=== PATIENT | female | born 1960 | race Caucasian/White ===

== ENCOUNTER → 2016-11-27 | Outpatient (CLI) | payer BC ==
[2013-08-02 11:13] VITALS: BP 140/93
--- NOTE | 2016-11-27 13:44 | RAD ---
HISTORY: Lumbar radiculopathy Study: Lumbar spine AP, lateral, spot, obliques Comparison: None Findings: The bones are mildly osteopenic. The alignment is normal. The vertebral bodies are of average height. The disc spaces are preserved with the exception of narrowing at L5-S1. No spondylolysis or spondylo listhesis is identified. The pedicles are intact. The SI joints are normal. IMPRESSION: Mild osteopenia Mild disc space narrowing L5 on S1 Reported By:
== END | disposition home or self-care (01) | DRG 552 ==
LOC: RAD 12:40
PROVIDERS: ATTEND Nurse Practitioner Family
DX: M54.17 Radiculopathy, lumbosacral region (principal); M85.88 Other specified disorders of bone density and structure, other site; M48.07 Spinal stenosis, lumbosacral region
CPT/HCPCS: 72110

== ENCOUNTER → 2017-01-10 | Outpatient (CLI) | payer BC ==
[2013-08-02 11:13] VITALS: BP 140/93
--- NOTE | 2017-01-12 07:12 | RAD ---
HISTORY: Right lower extremity pain and edema Study: Four-views right tib-fib Comparison: None Findings: No acute cortical disruption or dislocation can be identified. No significant soft tissue swelling o r injury can be seen. IMPRESSION: 1. Negative exam. Reported By:
== END ==
LOC: RAD 09:19
PROVIDERS: ATTEND Nurse Practitioner Family
DX: M79.604 Pain in right leg (principal)
CPT/HCPCS: 73590

== ENCOUNTER → 2017-01-16 | Outpatient (CLI) | payer BC ==
[2013-08-02 11:13] VITALS: BP 140/93
== END | disposition home or self-care (01) | DRG 951 ==
LOC: RAD 14:30
PROVIDERS: ATTEND Nurse Practitioner Family
DX: Z12.31 Encounter for screening mammogram for malignant neoplasm of breast (principal)
CPT/HCPCS: 77067

== ENCOUNTER → 2017-01-29 | Outpatient (CLI) | payer BC ==
[2013-08-02 11:13] VITALS: BP 140/93
--- NOTE | 2017-01-29 14:52 | MG ---
HISTORY: Abnormal baseline screening mammography with left breast nodule Left breast digital diagnostic mammography with CAD. Comparison: January 16, 2017 FINDINGS: Spot magnification and mL views of the left breast were obtained. Scattered fibroglandular tissue is seen to be present with the previously described nodule either resolving or representing a skin lesi on which was not previously annotated. No suspicious architectural distortion, mass or clustered rene rocalcifications can be observed to suggest malignancy. No skin thickening or nipple retraction is a ppreciated. No pathological lymphadenopathy can be identified. Benign-appearing calcifications are noted. IMPRESSION: NO RADIOGRAPHIC EVIDENCE OF MALIGNANCY. ACR CATEGORY 2 - benign findings. FOLLOW-UP EXAM 1 YEAR. Diagnostic CAD was utilized and reviewed. * 0 (ZERO) - ASSESSMENT INCOMPLETE; ADDITIONAL IMAGING IS NEEDED. * 1/1 (ONE) - NEGATIVE. * 2/II (TWO) - BENIGN FINDINGS. * 3/III (THREE) - PROBABLY BENIGN FINDING; SHORT INTERVAL FOLLOW-UP SUGGESTED. * 4/IV (FOUR) - SUSPICIOUS ABNORMALITY; BIOPSY SHOULD BE CONSIDERED. * 5/V - HIGHLY SUSPICIOUS OF MALIGNANCY; BIOPSY SHOULD BE PERFORMED. A NEGATIVE X-RAY REPORT SHOULD NOT DELAY BIOPSY IF A DOMINANT OR CLINICALLY SUSPICIOUS MASS IS PRESENT; 4 TO 8 PERCENT OF CANCERS ARE NOT IDENTIFIED BY X-RAY. A NEGA TIVE REPORT MAY REINFORCE THE CLINICAL IMPRESSION. ADENOSIS AND DENSE BREASTS MAY OBSCURE AN UNDERLY ING NEOPLASM. Reported By:
== END ==
LOC: RAD 13:29
PROVIDERS: ATTEND Nurse Practitioner Family
DX: R92.8 Other abnormal and inconclusive findings on diagnostic imaging of breast (principal)
CPT/HCPCS: 77065